=== PATIENT | male | born 1995 | race Caucasian/White ===

== ENCOUNTER 2017-03-12 14:24 | Outpatient (CLI) | payer OTHER | END 2017-03-12 14:25 | disposition critical access hospital (66) | LOC: EMS 14:24 | PROVIDERS: ATTEND Surgery | DX: R45.851 Suicidal ideations (principal) | CPT/HCPCS: A0425; A0429 ==

== ENCOUNTER 2017-03-12 14:51 | Emergency (ER) | payer OTHER ==
--- NOTE | 2017-03-12 15:12 | ED Physician Documentation ---
History of Present Illness - Stated complaint Stated Complaint: SI - Chief complaint Chief Complaint: MHE - Additonal information Additional information: hx from pt 21 y/o male [employer] visiting locally feeling suicidal due to his is leaving him had plan to kill himself with a friends hand gun that he had in his possession did not overdose cut or do anything else to harm himself at this moment in the ER he says he won't kill himself "I couldn't do it" denies HI no recent fever cough NVD or pain anywhere Review of Systems Constitutional: denies: Fever, Chills Throat: denies: Sore throat Cardiac: denies: Chest pain / pressure Respiratory: denies: Dyspnea, Cough GI: denies: Abdominal Pain, Nausea, Vomiting Psychiatric: reports: Depressed, Suicidal. denies: Homicidal Endocrine: denies: Easy bruising / bleeding Immunocompromised: denies: Immunocompromised PD ED PE NORMAL - Vitals Vital signs reviewed: Yes - Neck Neck: Supple, no meningeal sign - Cardiac Cardiac: RRR - Respiratory Respiratory: No respiratory distress, Clear bilaterally - Abdomen Abdomen: Soft, Non tender - Derm Derm: Normal color - Neuro Neuro: Alert and oriented X 3 - Psych Psych: Other (depressed with suicidal ideations and a plan but here and wanting to get help) Results - Vitals Vitals: Vital Signs - 24 hr 03/12/17 15:00 Temperature 37.3 C Heart Rate 107 H Respiratory 18 Rate Blood Pressure 116/70 O2 Saturation 96 Oxygen O2 Source Room air - Labs Labs: Laboratory Tests 03/12/17 03/12/17 03/12/17 15:30 15:30 16:35 WBC 5.0 RBC 5.43 Hgb 15.7 Hct 46.8 MCV 86.2 MCH 28.9 MCHC 33.5 RDW 13.8 Plt Count 215 MPV 7.2 L Neut # 3.3 Lymph # 1.0 L [place] # 0.6 Eos # 0.0 Baso # 0.1 Absolute Nucleated RBC 0.00 Nucleated RBCs 0.0 Sodium 140 Potassium 3.9 Chloride 104 Carbon Dioxide 26 Anion Gap 10.0 BUN 9 Creatinine 1.0 Estimated GFR (MDRD) 94 Glucose 86 Calcium 9.8 Total Bilirubin 0.6 AST 28 ALT 24 Alkaline Phosphatase 74 Total Protein 8.4 H Albumin 4.8 Globulin 3.6 Albumin/Globulin Ratio 1.3 Lipase 18 L Urine Color YELLOW Urine Clarity CLEAR Urine pH 6.0 Ur Specific [place] <=1.005 Urine Protein NEGATIVE Urine Glucose (UA) NEGATIVE Urine Ketones TRACE Urine Occult Blood NEGATIVE Urine Nitrite NEGATIVE Urine Bilirubin NEGATIVE Urine Urobilinogen 0.2 (NORMAL) Ur Leukocyte Esterase NEGATIVE Ur Microscopic Review NOT INDICATED Urine Culture Comments NOT INDICATED Salicylates < 6.0 Urine Opiates Screen NEGATIVE Ur Oxycodone Screen NEGATIVE Urine Methadone Screen NEGATIVE Ur Propoxyphene Screen NEGATIVE Acetaminophen < 10 L Ur Barbiturates Screen NEGATIVE Ur Tricyclics Screen NEGATIVE Ur Phencyclidine Scrn NEGATIVE Ur Amphetamine Screen NEGATIVE U Methamphetamines Scrn NEGATIVE U Benzodiazepines Scrn NEGATIVE Urine Cocaine Screen NEGATIVE U Cannabinoids Screen NEGATIVE Ethyl Alcohol 25.9 PD MEDICAL DECISION MAKING - ED course ED course: contacted ALEXANDRU at 1510 seen by ALEXANDRU BLANCO U tox pending SW spoke with [employer] command and they are coming up from [facility] to get pt and assume responsibility, per SW will either transport him to [facility] or place him on a suicide watch 8 PM awaiting command arrival turned over to PM EMP but there should not need to be any further intervention, has been calm and patient while in the ER Departure - Departure Clinical Impression: Suicidal ideation Condition: Good Instructions: ED Depression Comments: Your [employer] command has come to get you and they are assuming responsibility for your safety and providing you with the mental health support and care you need
[2017-03-12 15:39] LABS: BASOPHILS # (AUTO) 0.1 10^3/uL (0.0-0.1); BASOPHILS % (AUTO) 1.2 %; EOSINOPHILS % (AUTO) 0.8 %; HCT - HEMATOCRIT 46.8 % (42.0-52.0); HGB - HEMOGLOBIN 15.7 g/dL (14.0-18.0); LYMPHOCYTES % (AUTO) 19.1 %; MEAN CORPUSCULAR HEMOGLOBIN 28.9 pg (27.0-31.0); MEAN CORPUSCULAR HGB CONC 33.5 g/dL (32.0-36.0); MEAN CORPUSCULAR VOLUME 86.2 fL (80.0-94.0); MEAN PLATELET VOLUME 7.2 fL (7.4-11.4); MONOCYTES # (AUTO) 0.6 10^3/uL (0.0-1.0); MONOCYTES % (AUTO) 12.2 %; NEUTROPHILS # (AUTO) 3.3 10^3/uL (1.5-6.6); NEUTROPHILS % (AUTO) 66.7 %; RED BLOOD COUNT 5.43 10^6/uL (4.70-6.10); RED CELL DISTRIBUTION WIDTH 13.8 % (12.0-15.0)
[2017-03-12 15:52] LABS: ALBUMIN/GLOBULIN RATIO 1.3 (1.0-2.2); BILIRUBIN,TOTAL 0.6 mg/dL (0.2-1.0); BUN - BLOOD UREA NITROGEN 9 mg/dL (6-20); CALCIUM 9.8 mg/dL (8.5-10.3); CARBON DIOXIDE - CO2 26 mmol/L (21-32); CHLORIDE 104 mmol/L (101-111); GFR - MDRD 94 (>89); GLUCOSE 86 mg/dL (70-100); LIPASE 18 U/L (22-51); POTASSIUM 3.9 mmol/L (3.5-5.0); SALICYLATE < 6.0 mg/dL; SODIUM 140 mmol/L (135-145); TOTAL PROTEIN 8.4 g/dL (6.7-8.2)
[2017-03-12 15:53] LABS: ACETAMINOPHEN < 10 ug/mL (10-30)
[2017-03-12 17:23] LABS: BILIRUBIN,URINE NEGATIVE (NEGATIVE)
[2017-03-12 17:25] LABS: UA CHARGE (STRIP ONLY) YES; UR CULTURE IF IND NOT INDICATED
[2017-03-12 19:56] VITALS: BP 104/67
== END 2017-03-12 20:18 | disposition home or self-care (01) ==
LOC: ED 14:51
DX: F32.9 Major depressive disorder, single episode, unspecified (principal); R45.851 Suicidal ideations
CPT/HCPCS: 36415; 80053; 80306; 80307; 80320; 80329; 81001; 81003; 83690; 85025; 87086; 99283; 99284

== ENCOUNTER 2018-11-30 18:57 | Emergency (ER) | payer SELFPAY ==
[2018-11-30 19:03] VITALS: BP 135/71
--- NOTE | 2018-11-30 19:09 | ED Physician Documentation ---
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 No: Fever, Sore throat Contributing factors: No: Sick contact Similar symptoms before: Has not had sx before Recently seen: Not recently seen Review of Systems Constitutional: denies: Fever Ears: reports: Loss of hearing, Ear pain. denies: Drainage/discharge Nose: reports: Congestion, Sinus pressure / pain. denies: Rhinorrhea / runny nose Throat: denies: Dental pain / toothache, Oral lesions / sores, Sore throat Respiratory: denies: Cough GI: denies: Nausea, Vomiting, Diarrhea PD PAST MEDICAL HISTORY - Past Medical History Past Medical History: No Cardiovascular: None Respiratory: None HEENT: None - Past Surgical History Past Surgical History: No - Present Medications Home Medications: Ambulatory Orders Medication Instructions Recorded Confirmed Amox/Clav 875/125 [Augmentin] 1 each PO Q12H #14 tablet 11/30/18 Cetirizine [ZyrTEC] 10 mg PO DAILY #20 tablet 11/30/18 Dexamethasone [Decadron] 4 mg PO DAILY #5 tablet 11/30/18 - Allergies Allergies/Adverse Reactions: Allergies Allergy/AdvReac Type Severity Reaction Status Date / Time No Known Drug Allergies Allergy Verified 11/30/18 19:01 - Social History Does the pt smoke?: Yes Smoking Status: Current every day smoker - POLST Patient has POLST: No PD ED PE NORMAL - Vitals Vital signs reviewed: Yes - General General: Alert and oriented X 3, No acute distress, Well developed/nourished - HEENT HEENT: Pharynx benign. No: Ears normal (right TM is bulging and pressured but not red. The left is really red, bulging, with purulence behind the TM. Canal is okay. ) - Neck Neck: Supple, no meningeal sign, No adenopathy - Cardiac Cardiac: RRR, No murmur - Respiratory Respiratory: Clear bilaterally - Derm Derm: Normal color, Warm and dry, No rash Results - Vitals Vitals: Vital Signs - 24 hr 11/30/18 19:00 Temperature 37.0 C Heart Rate 78 Respiratory 17 Rate Blood Pressure 135/71 H O2 Saturation 97 Oxygen O2 Source Room air PD MEDICAL DECISION MAKING - ED course Complexity details: considered differential (right TM pressured but not red; the left is very red, with some purulence behind the TM, pressured looking. Looks like it would hurt. ), d/w patient Departure - Departure Disposition: Home, Self Care Clinical Impression: Otitis media Qualifiers: Otitis media type: suppurative Chronicity: acute Laterality: left Recurrence: non-recurrent Spontaneous tympanic membrane rupture: without spontaneous rupture Qualified Code(s): H66.002 - Acute suppurative otitis media without spontaneous rupture of ear drum, left ear Sinusitis, acute Qualifiers: Sinusitis location: unspecified location Recurrence: non-recurrent Qualified Code(s): J01.90 - Acute sinusitis, unspecified Condition: Stable Record reviewed to determine appropriate education?: Yes Instructions: ED Otitis Media Acute Adult, ED Sinusitis Abx Tx Prescriptions: Amox/Clav 875/125 [Augmentin] 1 each PO Q12H #14 tablet Cetirizine [ZyrTEC] 10 mg PO DAILY #20 tablet Dexamethasone [Decadron] 4 mg PO DAILY #5 tablet Comments: Your ear infection has the eardrum fairly tight right now. You should not change elevation such as going over the past tonight. Presume will be better tomorrow after medication effect overnight. Discharge Date/Time: 11/30/18 19:34
[2018-11-30] MEDS ORDERED: CETIRIZINE 10 MG TABLET PO STA (19:23)
[2018-11-30] MEDS ORDERED: AMOX/CLAV 875 MG/125 MG TABLET PO STA (19:23)
[2018-11-30] MEDS ORDERED: IBUPROFEN 600 MG TABLET PO STA (19:23)
[2018-11-30] MEDS ORDERED: DEXAMETHASONE 10 MG/ML VIAL PO STA (19:23)
[2018-11-30] MEDS ORDERED: CHERRY SYRUP 10 ML UDC PO ONE (19:23)
== END 2018-11-30 19:34 | disposition home or self-care (01) ==
LOC: ED 18:57
DX: H66.002 Acute suppurative otitis media without spontaneous rupture of ear drum, left ear (principal); J01.90 Acute sinusitis, unspecified
CPT/HCPCS: 99283; A9270